=== PATIENT | male | born 1990 | race African-American/Black ===

== ENCOUNTER 2018-09-22 07:08 | Emergency (ER) | payer BC, MEDICAID ==
[~2018-09-22] VITALS: Ht 180.3 cm; Wt 78.0 kg
[2018-09-22 07:26] VITALS: BP 136/82
== END 2018-09-22 08:39 | disposition home or self-care (01) ==
LOC: ER 07:08
DX: B35.3 Tinea pedis (principal); L30.1 Dyshidrosis [pompholyx]; F17.200 Nicotine dependence, unspecified, uncomplicated
CPT/HCPCS: 99282